=== PATIENT | female | born 1955 | race Caucasian/White ===

== ENCOUNTER 2018-04-02 10:31 | Inpatient (IN) | payer BC ==
[~2018-04-02] VITALS: Ht 157.5 cm; Wt 125.6 kg
--- NOTE | ~2018-04-02 | PATH ---
[facility] [place] [address] PATHOLOGY RPT PROCEDURE Name: REA MURILLO Room #: 464-P [facility] M.R.#: [id number] Admission: 04/02/18 Date of : 59 Discharge: 04/04/18 Report #: [id number] Path Case #: [id number] [facility] Accession Number: [id number] . 01 Material submitted: . PART A: ANTRUM BX R/O H PYLORI PART B: ASCENDING COLON POLYP BX PART C: HEPATIC FLEXURE POLYP BX PART D: SIGMOID COLON INFLAMMATION BX PART E: POLYP SIGMOID COLON . 01 Clinical history: . Pre-op diagnosis: Abdominal pain, GI bleed, abnormal CT Post-op diagnosis: Duodenitis, hiatal hernia, Schatzki's ring, gastritis, colon polyp, sigmoid colon inflammation . 02 Diagnosis: A. Gastric biopsy, antrum: - Mild chronic reactive gastropathy. - The immunoperoxidase stain for Helicobacter pylori is negative. . B. Colonic mucosa "ascending colon polyp biopsy": - Tubular adenoma. - There is no evidence of high-grade dysplasia or malignancy. . C. Colonic mucosa "hepatic flexure polyp biopsy": - Tubular adenoma. - There is no evidence of high-grade dysplasia or malignancy. . D. Colonic mucosa "sigmoid colon inflammation": - Ulceration with inflammatory exudate and with focal cryptitis and crypt abscesses and hyalinized stroma and small glands. - The differential includes ischemic colitis and infectious collitis. - Suggest clinical and endoscopic correlation. . E. Colonic mucosa "polyp sigmoid colon": - Tubular adenoma. - There is no evidence of high-grade dysplasia or malignancy. (SHA:cheryl; 04/05/2018) QMS/04/05/2018 . 02 Electronically signed: . Patrick King MD, Pathologist NPI- [id number] . 01 Gross description: . A. The specimen is received in formalin, labeled "gareth Cheatham, [place] [address] PATHOLOGY RPT PROCEDURE Name: REA MURILLO Room #: 464-P [facility] M.R.#: [id number] Admission: 04/02/18 Date of : 59 Discharge: 04/04/18 Report #: [id number] Path Case #: [id number] R/O H. pylori". Received are two segments of pale murray soft tissue measuring 0.3 and 0.4 cm in maximum dimensions. The specimen is submitted entirely in cassette A1. . B. The specimen is received in formalin, labeled "Rea Gambreal, ascending colon polyp biopsy". Received is a segment of pale murray soft tissue measuring 0.7 cm in maximum dimensions. The specimen is submitted entirely in cassette B1. . C. The specimen is received in formalin, labeled "Rea Gambreal, hepatic flexure polyp biopsy". Received are two segments of pale murray soft tissue measuring 0.5 and 0.7 cm in maximum dimensions. The specimen is submitted entirely in cassette C1. . D. The specimen is received in formalin, labeled "Rea Gambreal, sigmoid colon inflammation biopsy". Received are four segments of pale murray soft tissue ranging in size from 0.1 to 0.3 cm in maximum dimensions. The specimen is submitted entirely in cassette D1. . E. The specimen is received in formalin, labeled "Rea Gambreal, polyp sigmoid colon". Received is a segment of light murray soft tissue measuring 0.9 x 0.6 x 0.5 cm in greatest dimensions. The surgical margin is inked. The specimen is bisected perpendicular to the margin and entirely submitted in cassette E1. (CAA; 04/04/2018) QAC/QAC . 02 Pathologist provided ICD-10: K31.9, D12.2, D12.3, K63.3, D12.5 . 02 CPT . 834756, 453166, [id number], 727355, [id number], [id number] Specimen Comment: A courtesy copy of this report has been sent to Specimen Comment: [phone], . Specimen Comment: Report sent to / DR DOUGLAS Performed at: [address] [facility] [address], [place], [place] [id number] MD Kenton Soliz MD Phone: [phone] Performed at: [address] [facility] [id number] MD Estela Guzmán MD Phone: [phone]
[~2018-04-02 10:31] MED LIST: CALCIUM 500 +1 EAC5 PO; GLUCOSAMINE CH1 EAC3 PO; LEVOTHYROXIN0.075 MG PO; LIDOCAINE 22 %/30 GM TOP; ZOLOFT50 MG PO
[2018-04-02 10:32] VITALS: BP 133/42
[2018-04-02 11:18] LABS: ABSOLUTE NEUTROPHILS 4.8 thou/uL (1.4-8.2); BASOPHILS 0.5 % (0.0-2.0); EOSINOPHILS 1.4 % (0.0-3.0); LYMPHOCYTES 31.4 % (24.0-44.0); MCH 31.9 pg (26.0-34.0); MCHC 34.8 g/dL (28.0-37.0); MCV 91.7 fL (80.0-100.0); PLATELET COUNT 184 thou/uL (150-400); POLYS 59.7 % (36.0-66.0); RBC 4.68 mil/uL (4.20-5.00); RDW 12.5 % (10.5-14.5)
[2018-04-02 11:29] LABS: CALCIUM 9.4 mg/dL (8.5-10.1); CREATININE 0.8 mg/dL (0.6-1.0); POTASSIUM 4.2 mmol/L (3.5-5.1)
[2018-04-02 11:30] LABS: APTT 27.5 Seconds (24.5-32.8); PROTIME 10.7 Seconds (9.3-11.4)
[2018-04-02 11:42] LABS: ALBUMIN 3.7 g/dL (3.4-5.0); TOTAL BILIRUBIN 0.4 mg/dL (<0.1-1.0); TOTAL PROTEIN 7.3 g/dL (6.4-8.2)
[2018-04-02 12:41] LABS: TSH 4.925 uIU/mL (0.358-3.740)
[2018-04-02 13:22] VITALS: BP 131/30
[2018-04-02 13:56] VITALS: BP 147/97
[2018-04-02 19:23] VITALS: BP 118/68
[2018-04-03 02:18] VITALS: BP 142/69
[2018-04-03 06:05] LABS: HEMATOCRIT 40.7 % (37.0-47.0); MCH 31.6 pg (26.0-34.0); MCHC 34.5 g/dL (28.0-37.0); MCV 91.7 fL (80.0-100.0); RBC 4.44 mil/uL (4.20-5.00); RDW 12.5 % (10.5-14.5); WBC 8.4 thou/uL (4.0-11.0)
[2018-04-03 06:23] LABS: CALCIUM 8.8 mg/dL (8.5-10.1); CREATININE 0.9 mg/dL (0.6-1.0); MAGNESIUM 1.9 mg/dL (1.8-2.4)
[2018-04-03 08:18] VITALS: BP 127/60
[2018-04-03 09:08] VITALS: BP 125/82
[2018-04-03 13:13] VITALS: BP 137/62
[2018-04-03 19:26] VITALS: BP 116/50
[2018-04-04 04:46] VITALS: BP 114/59
[2018-04-04 05:19] LABS: HEMATOCRIT 40.7 % (37.0-47.0); HEMOGLOBIN 13.8 gm/dL (12.0-15.0); MCH 31.2 pg (26.0-34.0); MCHC 33.9 g/dL (28.0-37.0); MCV 91.8 fL (80.0-100.0); RBC 4.43 mil/uL (4.20-5.00); RDW 12.5 % (10.5-14.5)
[2018-04-04 05:28] LABS: CALCIUM 8.7 mg/dL (8.5-10.1); CREATININE 0.9 mg/dL (0.6-1.0)
[2018-04-04 07:35] VITALS: BP 121/62
[2018-04-04 14:04] VITALS: BP 122/58
[2018-04-04] MEDS ORDERED: FLAGYL500 MG PO (14:37)
[2018-04-04] MEDS ORDERED: CIPROFLOXACIN500 M1 PO (14:37)
[2018-04-04] MEDS ORDERED: PROTONIX40 M1 PO (14:38)
[2018-04-04 14:45] VITALS: BP 122/58
[2018-04-04] MEDS ORDERED: WORK EXCUSE (15:46)
== END 2018-04-04 16:14 | disposition home or self-care (01) | DRG 394 ==
LOC: ER 10:31 → 4W 11:47 → EROBS 11:47 → 4W 13:58 → ENTRNSPT 04-04 15:56 → 4W 04-04 16:14
PROVIDERS: Emergency Medicine; Internal Medicine
PROC: 0DBN8ZZ Excision of Sigmoid Colon, Via Natural or Artificial Opening Endoscopic (ICD-10-PCS; principal; 2018-04-03)
PROC: 0DBK8ZZ Excision of Ascending Colon, Via Natural or Artificial Opening Endoscopic (ICD-10-PCS; principal; 2018-04-03)
PROC: 0DB68ZX Excision of Stomach, Via Natural or Artificial Opening Endoscopic, Diagnostic (ICD-10-PCS; principal; 2018-04-03)
PROC: 0DBL8ZX Excision of Transverse Colon, Via Natural or Artificial Opening Endoscopic, Diagnostic (ICD-10-PCS; principal; 2018-04-03)
PROC: 0DBK8ZX Excision of Ascending Colon, Via Natural or Artificial Opening Endoscopic, Diagnostic (ICD-10-PCS; principal; 2018-04-03)
PROC: 0DBN8ZX Excision of Sigmoid Colon, Via Natural or Artificial Opening Endoscopic, Diagnostic (ICD-10-PCS; principal; 2018-04-03)
PROC: 0DBL8ZZ Excision of Transverse Colon, Via Natural or Artificial Opening Endoscopic (ICD-10-PCS; principal; 2018-04-03)
DX: K55.9 Vascular disorder of intestine, unspecified (principal); Z68.43 Body mass index [BMI] 50.0-59.9, adult; E03.9 Hypothyroidism, unspecified; K64.8 Other hemorrhoids; F32.9 Major depressive disorder, single episode, unspecified; I95.1 Orthostatic hypotension; G47.33 Obstructive sleep apnea (adult) (pediatric); K22.2 Esophageal obstruction; K44.9 Diaphragmatic hernia without obstruction or gangrene; K29.70 Gastritis, unspecified, without bleeding; K29.80 Duodenitis without bleeding; J44.9 Chronic obstructive pulmonary disease, unspecified; D12.2 Benign neoplasm of ascending colon; D12.5 Benign neoplasm of sigmoid colon; D12.3 Benign neoplasm of transverse colon; E66.9 Obesity, unspecified; K59.00 Constipation, unspecified; Z87.891 Personal history of nicotine dependence; Z90.710 Acquired absence of both cervix and uterus; Z79.899 Other long term (current) drug therapy; Z88.5 Allergy status to narcotic agent; Z23 Encounter for immunization
CPT/HCPCS: 10045; 10047; 62110; 62900; 70005

== ENCOUNTER → 2020-01-30 | Outpatient (CLI) | payer BC ==
[~2020-01-30] MED LIST changes: +CIPROFLOXACIN500 M1 PO; +FLAGYL500 MG PO; +PROTONIX40 M1 PO; +WORK EXCUSE
== END ==
LOC: RAD 13:06
PROVIDERS: ATTEND Internal Medicine Pulmonary Disease
DX: J98.11 Atelectasis (principal)

== ENCOUNTER → 2020-01-31 | Outpatient (CLI) | payer BC | LOC: ULTRA 10:24 | PROVIDERS: ATTEND Internal Medicine Pulmonary Disease | DX: M79.89 Other specified soft tissue disorders (principal); R06.02 Shortness of breath ==